=== PATIENT | male | born 1985 | race Caucasian/White ===

== ENCOUNTER 2024-05-25 15:34 | Emergency (ER) | payer OTHER ==
[2024-05-25 16:25] LABS: Basophils % (A) 0 %; Eosinophils % (A) 0 %; HCT 39.8 % (39.0-53.0); Lymphocytes # (A) 0.5 k/uL (1.0-4.8); Lymphocytes % (A) 6 %; MCH 32.5 pg (25.0-35.0); MCHC 35.1 g/dL (31.0-37.0); MCV 92.8 fL (80.0-100.0); Mean Platelet Volume 7.3; Monocytes # (A) 0.3 k/uL (0-1.0); Monocytes % (A) 4 %; Neutrophils # (A) 7.6 k/uL (1.3-7.7); Neutrophils % (A) 88 %; Platelet Count 249 k/uL (150-450); RBC 4.29 m/uL (4.30-5.90); RDW 13.4 % (11.5-15.5); WBC 8.7 k/uL (3.8-10.6)
--- NOTE | 2024-05-25 16:27 | ED ---
General Adult HPI - General Chief complaint: Upper Respiratory Infection Stated complaint: congestion Time Seen by Provider: 05/25/24 15:55 Source: patient, EMS, RN notes reviewed, old records reviewed Mode of arrival: EMS Limitations: no limitations - History of Present Illness Initial comments: Patient is a 38-year-old male who presents emergency department complaining of URI symptoms. Urgent care sent him here over concern for possible hypoxia. Patient was has been febrile with productive cough for the last 5 to 7 days. Has been worsening over the last few days. Patient's children were diagnosed with walking pneumonia and he saw them recently and is sterile his only sick contact. He has no significant past medical history other than hypothyroidism. Denies any chest pain but does endorse sinus pressure, as well as congestion. Endorses the fevers. Presents for further evaluation at this time. Tmax has been 102 F orally at home. Does not smoke. No history of asthma. No cardiac history. - Related Data Previous Rx's Medication Instructions Recorded Albuterol Inhaler [Ventolin Hfa 2 puff INHALATION QID #8 gm 05/25/24 Inhaler] predniSONE [Deltasone] 40 mg PO BID 5 Days #10 tab 05/25/24 Allergies Allergy/AdvReac Type Severity Reaction Status Date / Time No Known Allergies Allergy Verified 05/25/24 16:28 Review of Systems ROS Statement: Those systems with pertinent positive or pertinent negative responses have been documented in the HPI. Review of Systems: CONST: Endorses fever EYES: Denies blurry vision ENT: Denies nasal congestion C/V: Denies Chest pain RESP: Endorses congestion, cough GI: Denies abdominal pain : Denies dysuria SKIN: Denies rash. MSK: Denies joint pain. NEURO: Denies headache ROS Other: All systems not noted in ROS Statement are negative. General Exam - General Exam Comments Initial Comments: General: Appears in no acute distress. Febrile. HEAD: Normal with no signs of head trauma. EYES: EOMI ENT: Hearing grossly intact, normal oropharynx. RESPIRATORY: Clear breath sounds bilaterally. No wheezes, rales, or rhonchi. No significant hypoxia on room air. C/V: Regular rate and rhythm. S1 and S2 auscultated, no edema, peripheral pulses 2+ and intact throughout ABD: Abd is soft, nontender, nondistended EXT: Normal range of motion, no obvious deformity SKIN: No rashes or lesions observed on exposed skin. NEURO: Alert and oriented x 4. Limitations: no limitations Course Vital Signs 05/25/24 05/25/24 05/25/24 15:38 15:57 16:08 Temperature 100.8 F H Pulse Rate 103 H Respiratory 20 20 Rate Blood Pressure 137/90 O2 Sat by Pulse 98 96 Oximetry 05/25/24 05/25/24 05/25/24 17:05 17:13 17:50 Temperature 99.5 F Pulse Rate 100 102 H 102 H Respiratory 18 Rate Blood Pressure 134/74 O2 Sat by Pulse 93 L Oximetry 05/25/24 18:36 Temperature 98.9 F Pulse Rate 96 Respiratory 18 Rate Blood Pressure 129/75 O2 Sat by Pulse 95 Oximetry Medical Decision Making - Medical Decision Making Was pt. sent in by a medical professional or institution (, PA, EXTENSION WORK DIRECTOR, urgent care, hospital, or senior care...) When possible be specific @ -Sent by urgent care over concern for URI and possible hypoxia. Did you speak to anyone other than the patient for history (EMS, parent, family, police, friend...)? What history was obtained from this source @ -No Did you review nursing and triage notes (agree or disagree)? Why? @ -I reviewed and agree with nursing and triage notes Were old charts reviewed (outside hosp., previous admission, EMS record, old EKG, old radiological studies, urgent care reports/EKG's, senior care records)? Report findings @ -No old charts were reviewed Differential Diagnosis (chest pain, altered mental status, abdominal pain women, abdominal pain men, vaginal bleeding, weakness, fever, dyspnea, syncope, headache, dizziness, GI bleed, back pain, seizure, CVA, palpatations, mental health, musculoskeletal)? @ -COVID, flu, RSV, pneumonia. This list is not all inclusive. EKG interpreted by me (3pts min.). @ -As above X-rays interpreted by me (1pt min.). @ -Chest x-ray shows no obvious acute cardiopulmonary process. CT interpreted by me (1pt min.). @ -None done U/S interpreted by me (1pt. min.). @ -None done What testing was considered but not performed or refused? (CT, X-rays, U/S, labs)? Why? @ -None What meds were considered but not given or refused? Why? @ -None Did you discuss the management of the patient with other professionals (fly nazario i.e. , PA, EXTENSION WORK DIRECTOR, lab, RT, psych nurse, social media strategist, program director/air personality, teacher, railroad police officer, pillowcase folder)? Give summary @ -No Was smoking cessation discussed for >3mins.? @ -No Was critical care preformed (if so, how long)? @ -No Were there social determinants of health that impacted care today? How? (Homelessness, low income, unemployed, alcoholism, drug addiction, transportation, low edu. Level, literacy, decrease access to med. care, snf, rehab)? @ -No Was there de-escalation of care discussed even if they declined (Discuss DNR or withdrawal of care, Hospice)? DNR status @ -No What co-morbidities impacted this encounter? (DM, HTN, Smoking, COPD, CAD, Cancer, CVA, ARF, Chemo, Hep., AIDS, mental health diagnosis, sleep apnea, morbid obesity)? @ -None Was patient admitted / discharged? Hospital course, mention meds given and route, prescriptions, significant lab abnormalities, going to OR and other pertinent info. @ -Patient presents emergency department complaining of fever and URI symptoms. Vital signs remarkable for febrile illness and mild tachycardia likely seconda ry to the fever. Presents from urgent care for concern for hypoxia however patient's pulse ox on room air is 95% or higher. We will obtain basic labs, Cepheid, chest x-ray, and patient be symptomatically treated with IV Toradol, oral Tylenol, DuoNeb, IV steroids and IV fluids. Patient was in agreement this plan. Will continue to monitor the patient's pulse ox here in the department. Screening EKG reveals no evidence of acute ischemia.Chest x-ray unremarkable. Laboratory studies remarkable for a hemolyzed potassium of 5.7. Patient has normal renal function and no evidence of hyperkalemia on EKG. Elevated potassium is from hemolysis. Lactic acid within normal limits. Viral swabs remarkable for influenza A infection. On reevaluation, I discussed results with patient. Vital signs remained within acceptable limits. He will be discharged home at this time. He is out of the window for Tamiflu. He will be discharged home with prednisone as well as albuterol inhaler. Patient was in agreement this plan. Strict return precautions discussed. Given a work note and discussion had regarding return to work not until at least 24 hours fever free and off antipyretic medications. Antoine cordoba was in agreement this plan. I instructed the patient to follow up with their PCP in the next 1-3 days. I explained that the patient should return to the emergency department if they experience any worsening symptoms. Strict return precautions were discussed with the patient. The patient expressed understanding of these instructions. I answered all questions that the patient had. The patient was discharged home in good condition with their prescriptions and follow up information. Undiagnosed new problem with uncertain prognosis? @ -No Drug Therapy requiring intensive monitoring for toxicity (Heparin, Nitro, Insulin, Cardizem)? @ -No Were any procedures done? @ -No Diagnosis/symptom? @ -Influenza A infection Acute, or Chronic, or Acute on Chronic? @ -Acute Uncomplicated (without systemic symptoms) or Complicated (systemic symptoms)? @ -Uncomplicated Side effects of treatment? @ -None Exacerbation, Progression, or Severe Exacerbation] @ -No Poses a threat to life or bodily function? @ -Unlikely at this time - Lab Data Result diagrams: 05/25/24 16:09 05/25/24 16:09 Lab Results 05/25/24 05/25/24 05/25/24 Range/Units 16:09 16:09 16:09 WBC 8.7 (3.8-10.6) k/uL RBC 4.29 L (4.30-5.90) m/uL Hgb 14.0 (13.0-17.5) gm/dL Hct 39.8 (39.0-53.0) % MCV 92.8 (80.0-100.0) fL MCH 32.5 (25.0-35.0) pg MCHC 35.1 (31.0-37.0) g/dL RDW 13.4 (11.5-15.5) % Plt Count 249 (150-450) k/uL MPV 7.3 Neutrophils % 88 % Lymphocytes % 6 % Monocytes % 4 % Eosinophils % 0 % Basophils % 0 % Neutrophils # 7.6 (1.3-7.7) k/uL Lymphocytes # 0.5 L (1.0-4.8) k/uL Monocytes # 0.3 (0-1.0) k/uL Eosinophils # 0.0 (0-0.7) k/uL Basophils # 0.0 (0-0.2) k/uL Sodium 132 L (137-145) mmol/L Potassium 5.7 H (3.5-5.1) mmol/L Chloride 100 (98-107) mmol/L Carbon Dioxide 27 (22-30) mmol/L Anion Gap 5 mmol/L BUN 17 (9-20) mg/dL Creatinine 0.87 (0.66-1.25) mg/dL Est GFR (CKD-EPI)AfAm >90 (>60 ml/min/1.73 sqM) Est GFR (CKD-EPI)NonAf >90 (>60 ml/min/1.73 sqM) Glucose 101 H (74-99) mg/dL Plasma Lactic Acid Caleb 0.7 (0.7-2.0) mmol/L Calcium 8.1 L (8.4-10.2) mg/dL Total Bilirubin 1.3 (0.2-1.3) mg/dL AST 53 (17-59) U/L ALT 23 (4-49) U/L Alkaline Phosphatase 20 L (38-126) U/L Total Protein 6.9 (6.3-8.2) g/dL Albumin 3.8 (3.5-5.0) g/dL Influenza Type A (PCR) (Not Detectd) Influenza Type B (PCR) (Not Detectd) RSV (PCR) (Not Detectd) SARS-CoV-2 (PCR) (Not Detectd) 05/25/24 Range/Units 16:12 WBC (3.8-10.6) k/uL RBC (4.30-5.90) m/uL Hgb (13.0-17.5) gm/dL Hct (39.0-53.0) % MCV (80.0-100.0) fL MCH (25.0-35.0) pg MCHC (31.0-37.0) g/dL RDW (11.5-15.5) % Plt Count (150-450) k/uL MPV Neutrophils % % Lymphocytes % % Monocytes % % Eosinophils % % Basophils % % Neutrophils # (1.3-7.7) k/uL Lymphocytes # (1.0-4.8) k/uL Monocytes # (0-1.0) k/uL Eosinophils # (0-0.7) k/uL Basophils # (0-0.2) k/uL Sodium (137-145) mmol/L Potassium (3.5-5.1) mmol/L Chloride (98-107) mmol/L Carbon Dioxide (22-30) mmol/L Anion Gap mmol/L BUN (9-20) mg/dL Creatinine (0.66-1.25) mg/dL Est GFR (CKD-EPI)AfAm (>60 ml/min/1.73 sqM) Est GFR (CKD-EPI)NonAf (>60 ml/min/1.73 sqM) Glucose (74-99) mg/dL Plasma Lactic Acid Caleb (0.7-2.0) mmol/L Calcium (8.4-10.2) mg/dL Total Bilirubin (0.2-1.3) mg/dL AST (17-59) U/L ALT (4-49) U/L Alkaline Phosphatase (38-126) U/L Total Protein (6.3-8.2) g/dL Albumin (3.5-5.0) g/dL Influenza Type A (PCR) Detected A (Not Detectd) Influenza Type B (PCR) Not Detected (Not Detectd) RSV (PCR) Not Detected (Not Detectd) SARS-CoV-2 (PCR) Not Detected (Not Detectd) - EKG Data -: EKG Interpreted by Me EKG Comments: 12-lead Electrocardiogram Interpretation Note EKG was reviewed and interpreted by myself. 12-lead ECG performed at 1604 is interpreted by me as revealing sinus tachycardia at a rate of 100 beats per minute. [place] is normal. [place] interval is 144 ms, QRS duration duration is 77 ms, QTc is 359 ms.. There were no ST or T wave abnormalities to suggest myocardial ischemia or injury. R wave progression across the precordium was satisfactory. By my interpretation this EKG is non-diagnostic for acute ischemia. Disposition Clinical Impression: Influenza A Disposition: HOME SELF-CARE Condition: Fair Instructions (If sedation given, give patient instructions): Influenza (ED) Additional Instructions: You have influenza A infection. Isolate until fever free for 24 hours. Use the supplied prednisone and albuterol inhaler for symptomatic treatment. Use [id number] antipyretic therapy including Tylenol Motrin for fevers. Return to the emergency department if worsening symptoms. Follow-up with your PCP in the next 1 to 3 days. Prescriptions: predniSONE [Deltasone] 40 mg PO BID 5 Days #10 tab Albuterol Inhaler [Ventolin Hfa Inhaler] 2 puff INHALATION QID #8 gm Is patient prescribed a controlled substance at d/c from ED?: No Referrals: Félix Morales DO [Primary Care Provider] - 1-2 days Time of Disposition: 18:20
[2024-05-25] MEDS: KETOROLAC 15 MG/ML 1 ML VIAL IVP STA (16:30)
[2024-05-25] MEDS: ACETAMINOPHEN TAB 500 MG TAB PO STA (16:32)
[2024-05-25] MEDS: SODIUM CHLORIDE 0.9% 1,000 ML IV STA (16:32)
[2024-05-25] MEDS: methylPREDNISolone SOD SUCCI 40 MG/ML 1 ML VIAL IV STA (16:32)
[2024-05-25 16:38] LABS: ALT 23 U/L (4-49); African American GFR (CKD) >90 (>60 ml/min/1.73 sqM); Anion Gap 5 mmol/L; Blood Urea Nitrogen 17 mg/dL (9-20); Calcium 8.1 mg/dL (8.4-10.2); Carbon Dioxide 27 mmol/L (22-30); Chloride 100 mmol/L (98-107); Glucose 101 mg/dL (74-99); Non-African American GFR(CKD) >90 (>60 ml/min/1.73 sqM); Sodium 132 mmol/L (137-145); Total Bilirubin 1.3 mg/dL (0.2-1.3)
[2024-05-25 17:00] LABS: Influenza A Detected (Not Detectd); Influenza B Not Detected (Not Detectd); RSV Not Detected (Not Detectd)
[2024-05-25] MEDS: IPRATROPIUM-ALBUTEROL 3 ML NEB INHALATION STA (17:03)
[2024-05-25 17:13] LABS: AST 53 U/L (17-59); Albumin 3.8 g/dL (3.5-5.0); Alkaline Phosphatase 20 U/L (38-126); Potassium 5.7 mmol/L (3.5-5.1); Total Protein 6.9 g/dL (6.3-8.2)
--- NOTE | 2024-05-25 17:44 | XR ---
EXAMINATION TYPE: XR chest 2V DATE OF EXAM: 05/25/2024 5:18 PM COMPARISON: None CLINICAL INDICATION: Male, 38 years old with history of difficulty breathing; [facility] TECHNIQUE: XR chest 2V Frontal and lateral views of the chest. FINDINGS: Lungs/Pleura: There is no evidence of pleural effusion, focal consolidation, or pneumothorax. Pulmonary vascularity: Unremarkable. Heart/mediastinum: Cardiomediastinal silhouette is unremarkable. Musculoskeletal: No acute osseous pathology. IMPRESSION: No acute cardiopulmonary disease/process. [facility], , 05/25/2024 5:41 PM
[2024-05-25 17:51] VITALS: RESP 18
[2024-05-25 18:38] VITALS: BP 129/75; PULSE 96; TEMP 98.9
== END 2024-05-25 18:39 | disposition home or self-care (01) ==
LOC: EC 15:34
DX: J10.1 Influenza due to other identified influenza virus with other respiratory manifestations (principal); Z11.52 Encounter for screening for COVID-19
CPT/HCPCS: 36415; 94640; 93005; 80053; 83605; 85025; 87636; 71046; 99284; 96374; 96375; 96361; J1885; J2919